=== PATIENT | male | born 1955 | race Caucasian/White ===

== ENCOUNTER 2022-02-23 09:16 | Inpatient (IN) ==
[2022-02-24] MEDS ORDERED: Ipratropium/Albuterol Neb 3 ML IH PRN (13:33)
[2022-02-24] MEDS ORDERED: Nitroglycerin 0.4 MG TAB.SUBL SL PRN (13:33)
[2022-02-24] MEDS ORDERED: tiZANidine 4 MG TABLET PO PRN (13:33)
[2022-02-24] MEDS ORDERED: Dextrose Gel 15 GM/37.5 ML TUBE PO PRN ×2 (13:58)
[2022-02-24] MEDS ORDERED: D5% in Water 1,000 ML IVC PRN (13:58)
[2022-02-24] MEDS ORDERED: *HR* Dextrose 50 % in Water (Syg) 50 ML SYRINGE IVP PRN (13:58)
[2022-02-24] MEDS ORDERED: Gabapentin 300 MG CAPSULE PO PRN (15:00)
[2022-02-24 15:15] LABS: Hematocrit 27.3 % (37.5-50.1); Hemoglobin 8.7 g/dL (12.9-16.9)
[2022-02-24] MEDS: *HR* Metformin 500 MG TABLET PO SCH (17:30)
[2022-02-24] MEDS: Insulin LISPRO 300 UNITS/3 ML VIAL SUBQ SCH (17:33)
[2022-02-24 20:20] LABS: Basophils % 0.1 %; Eosinophils # 0.1 K/mcL (0.0-0.6); Eosinophils % 0.6 %; Hematocrit 26.9 % (37.5-50.1); Hemoglobin 8.6 g/dL (12.9-16.9); Immature Granulocytes % 1.6 % (0-4); Lymphocytes # 2.4 K/mcL (0.6-4.6); Lymphocytes % 14.8 %; Mean Corpuscular Hemoglobin 26.9 pg (28.0-33.3); Mean Corpuscular Volume 84.1 fL (83.0-100.0); Mean Platelet Volume 9.1 fL (9.4-12.4); Monocytes # 1.3 K/mcL (0.0-1.3); Monocytes % 8.2 %; Neutrophils # 12.1 K/mcL (1.6-8.9); Nucleated Red Blood Cells 0.3 /100 WBC (0); Platelet Count 592 K/mcL (140-400); Red Cell Distribution Width 14.4 % (11.5-14.5); Segmented Neutrophils % 74.7 %; White Blood Count 16.2 K/mcL (4.3-11.1)
[2022-02-24] MEDS: methylPREDNISolone 4 MG TABLET PO SCH (20:38)
[2022-02-24] MEDS ORDERED: Insulin LISPRO 300 UNITS/3 ML VIAL SUBQ SCH (21:00)
[2022-02-24] MEDS: Budesonide/Formoterol 160/4.5 1 PUFF INH IH SCH (21:36)
[2022-02-25 01:42] LABS: Hemoglobin 7.7 g/dL (12.9-16.9)
[2022-02-25] MEDS ORDERED: 0.9 % Sodium Chloride 500 ML IVC ONE (02:12)
[2022-02-25] MEDS ORDERED: 0.9 % Sodium Chloride 250 ML ONE (03:58)
[2022-02-25 08:42] LABS: Basophils % 0.2 %; Eosinophils # 0.1 K/mcL (0.0-0.6); Eosinophils % 0.3 %; Hematocrit 27.5 % (37.5-50.1); Hemoglobin 8.8 g/dL (12.9-16.9); Immature Granulocytes % 3.6 % (0-4); Lymphocytes # 1.8 K/mcL (0.6-4.6); Lymphocytes % 9.7 %; Mean Corpuscular Hemoglobin 27.6 pg (28.0-33.3); Mean Corpuscular Volume 86.2 fL (83.0-100.0); Mean Platelet Volume 9.1 fL (9.4-12.4); Monocytes # 1.3 K/mcL (0.0-1.3); Monocytes % 7.2 %; Neutrophils # 14.3 K/mcL (1.6-8.9); Nucleated Red Blood Cells 0.5 /100 WBC (0); Platelet Count 552 K/mcL (140-400); Red Blood Count 3.19 M/mcL (4.19-5.50); Red Cell Distribution Width 14.3 % (11.5-14.5); White Blood Count 18.1 K/mcL (4.3-11.1)
[2022-02-25] MEDS ORDERED: hydroCHLOROthiazide 25 MG TABLET PO SCH (09:00)
[2022-02-25] MEDS ORDERED: Aspirin Enteric Coated 81 MG Tablet PO SCH (09:00)
[2022-02-25] MEDS ORDERED: Isosorbide MONOnitrate (24 HR) 30 MG TAB.ER.24H PO SCH (09:00)
[2022-02-25] MEDS ORDERED: Liraglutide [Victoza 2-Pak] 0.6 MG/0.1 ML Pen.Injctr SUBQ SCH (09:00)
[2022-02-25] MEDS ORDERED: Metoprolol XL (24 HR) Succ 25 MG TAB.ER.24H PO SCH (09:00)
[2022-02-25] MEDS: *HR* Metformin 500 MG TABLET PO SCH (09:17)
[2022-02-25] MEDS: methylPREDNISolone 4 MG TABLET PO SCH (09:18)
[2022-02-25] MEDS: Insulin LISPRO 300 UNITS/3 ML VIAL SUBQ SCH ×2 (09:19→12:13)
[2022-02-25 09:55] LABS: Calcium 8.3 mg/dL (8.6-10.3); Potassium 4.9 mEq/L (3.5-5.1)
[2022-02-25] MEDS ORDERED: Tiotropium 10 INH DOSE IH SCH (10:00)
[2022-02-25] MEDS: Budesonide/Formoterol 160/4.5 1 PUFF INH IH SCH (10:20)
[2022-02-25 11:42] VITALS: BP 111/66; PULSE 91; RESP 16; TEMP 98.2; O2SAT 98
== END 2022-02-25 13:15 | disposition short-term general hospital (02) | DRG 57 ==
LOC: INPGRE 02-24 10:13
PROVIDERS: ADMIT Family Medicine; ATTEND Family Medicine